=== PATIENT | female | born 1970 | race Hispanic/Latino ===

== ENCOUNTER 2018-11-09 23:00 | Observation (INO) | payer OTHER ==
[2018-11-09] MEDS ORDERED: Albuterol-Ipratrop 3 mg / 0.5 (3 ml) UD IH STA ×3 (23:50→23:51)
--- NOTE | 2018-11-09 23:54 | ED PDOC ---
HPI: SOB/CHF/COPD Time Seen by Provider: 11/09/18 23:19 Chief Complaint (Nursing): Shortness Of Breath Chief Complaint (Provider): sob History Per: Patient History/Exam Limitations: no limitations Onset/Duration Of Symptoms: Days (1 month) Current Symptoms Are (Timing): Still Present Additional Complaint(s): 48 y/o female presents for evaluation of dry cough, shortness of breath x 1 month. Patient was seen by Urgent Care and PMD multiple times and prescribed albuterol inhaler and nebulizer without improvement. Patient sent to ED by PMD for further evaluation. Denies fever, nausea/vomiting, chest pain, palpitations, leg pain/swelling, recent travel, OCP use, tobacco use. Last albuterol neb treatment prior to arrival Past Medical History Reviewed: Historical Data, Nursing Documentation, Vital Signs Vital Signs: Last Vital Signs Temp 97.5 F L 11/09/18 23:10 Pulse 109 H 11/09/18 23:10 Resp 26 H 11/09/18 23:10 BP 144/84 11/09/18 23:10 Pulse Ox 95 11/09/18 23:10 - Medical History PMH: No Chronic Diseases - Surgical History Surgical History: - Family History Family History: States: No Known Family Hx - Living Arrangements Living Arrangements: With Family - Social History Current smoker - smoking cessation education provided: No Alcohol: None Drugs: Denies - Home Medications Home Medications: Ambulatory Orders Medication Instructions Recorded Albuterol 0.083% [Albuterol 3 ml IH Q4 PRN 11/10/18 Sulfate 3 Ml] Carvedilol [Coreg] 3.125 mg PO DAILY 11/10/18 LORazepam [Ativan] 0.5 tab PO DAILY PRN 11/10/18 Oxybutynin [Oxybutynin Chloride] 5 mg PO DAILY 11/10/18 Oxycodone HCl/Acetaminophen 1 tab PO Q4 PRN 11/10/18 [Acetaminophen-Oxycodone 325 mg-5 mg] Patient Own Control 1 unit PO Q30D 11/10/18 Patient Own Control 2 puff PO BID 11/10/18 Patient Own Control 600 tab PO BID 11/10/18 Promethazine HCl/Codeine 5 ml PO Q4 PRN 11/10/18 [Prometh-Codein 6.25-10 mg/5 ml] - Allergies Allergies/Adverse Reactions: Allergies Allergy/AdvReac Type Severity Reaction Status Date / Time No Known Allergies Allergy Verified 11/09/18 23:10 Review of Systems ROS Statement: Except As Marked, All Systems Reviewed And Found Negative Respiratory: Positive for: Cough, Shortness of Breath Physical Exam - Reviewed Nursing Documentation Reviewed: Yes Vital Signs Reviewed: Yes - Physical Exam Appears: Positive for: Well, Non-toxic, Uncomfortable Head Exam: Positive for: ATRAUMATIC, NORMAL INSPECTION, NORMOCEPHALIC Skin: Positive for: Normal Color Eye Exam: Positive for: Normal appearance ENT: Positive for: Normal ENT Inspection Cardiovascular/Chest: Positive for: Regular Rate, Rhythm Respiratory: Positive for: Wheezing (diffuse expiratory wheezing) Gastrointestinal/Abdominal: Positive for: Normal Exam Back: Positive for: Normal Inspection Extremity: Positive for: Normal ROM Neurologic/Psych: Positive for: Alert, Oriented (x3) - Laboratory Results Result Diagrams: 11/10/18 00:10 11/10/18 00:23 - ECG ECG: Positive for: Viewed By Me (reviewed by ED attending) ECG Rhythm: Positive for: Sinus Tachycardia O2 Sat by Pulse Oximetry: 95 - Radiology X-Ray: Viewed By Me X-Ray Interpretation: No Acute Disease - Progress ED Course And Treament: -cbc -cmp -troponin -bnp -cxr -ekg -duoneb x 3 -IV solumedrol Case discussed with Dr. Rowland for placement in observation telemetry for failed outpatient treatment Disposition - Clinical Impression Clinical Impression: Bronchitis, Dyspnea - Patient ED Disposition Is Patient to be Admitted: Yes - Disposition Disposition Time: 00:03 Condition: FAIR
[2018-11-10] MEDS ORDERED: Albuterol-Ipratrop 3 mg / 0.5 (3 ml) UD ONE (00:14)
[2018-11-10 04:46] LABS: BASO # 0.1 K/uL (0.0-0.2); BASO % 1.1 % (0.0-2.0); EOS # 1.2 K/uL (0.0-0.7); EOS % 9.8 % (0.0-4.0); HEMOGLOBIN 12.8 g/dL (12.0-16.0); LYMPH # 4.4 K/uL (1.0-4.3); LYMPH % 36.5 % (20.0-40.0); MEAN CORPUSCULAR HEMOGLOBIN 21.6 pg (27.0-31.0); MEAN CORPUSCULAR HGB CONC 31.8 g/dL (33.0-37.0); MEAN PLATELET VOLUME 9.6 fl (7.2-11.7); MONO # 0.6 K/uL (0.0-0.8); NEUT # 5.7 K/uL (1.8-7.0); NEUT % 47.6 % (50.0-75.0); NRBC % 0.1 % (0.0-0.0); RBC 5.94 Mil/uL (3.80-5.20); RED CELL DISTRIBUTION WIDTH 15.3 % (11.5-14.5); WHITE BLOOD COUNT 12.1 K/uL (4.8-10.8)
[2018-11-10] MEDS ORDERED: Pneumococcal 23-Valent Vaccine IM ONE (06:00)
[2018-11-10] MEDS ORDERED: Promethazine/Cod 6.25mg-10mg/5ml Syr UD PO PRN (06:25)
[2018-11-10] MEDS ORDERED: Albuterol-Ipratrop 3 mg / 0.5 (3 ml) UD INH PRN (06:25)
[2018-11-10 07:47] LABS: ALB/GLOB RATIO 1.1 (1.0-2.1); AST/SGOT 25 U/L (14-36); B-TYPE NATRIURETIC PEPTIDE < 11.1 pg/ml (0-450); BLOOD UREA NITROGEN 12 mg/dl (7-17); GFR NON-AFRICAN AMERICAN > 60
[2018-11-10 07:48] LABS: ALT/SGPT 30 U/L (9-52)
--- NOTE | 2018-11-10 08:13 | CP.PCM.HP ---
<Dana Hoskins - Last Filed: 11/10/18 11:02> History of Present Illness - History of Present Illness History of Present Illness: CC: dyspnea HPI: 48 YO obese female with no sig PMHx presented to [facility] for cough and dyspnea. Pt states that her symptoms started about 2 months ago and significantly worsened. Dyspnea is worse with ambulation, cough is dry and nonproductive. Pt at one point took PO abx given by urgent care but her symptoms persisted. Denies fever, chest pain, palpitations. PMD: Dr. Riggs PMHx: denies Srughx: FHx: CAD and [place] Shx: denies smoking, ETOH and illicit dug use Allergies: NKDA Present on Admission - Present on Admission Any Indicators Present on Admission: No Review of Systems - Constitutional Constitutional: absent: Chills, Fever - Cardiovascular Cardiovascular: Dyspnea. absent: Chest Pain, Palpitations - Respiratory Respiratory: Cough, Dyspnea, Dyspnea on Exertion, Wheezing. absent: Hemoptysis - Gastrointestinal Gastrointestinal: absent: Abdominal Pain Past Patient History - Past Medical History & Family History Past Medical History?: Yes - Past Social History Smoking Status: Never Smoked Alcohol: None Drugs: Denies Home Situation {Lives}: With Family - PULMONARY Hx Respiratory Disorders: Yes Hx Asthma: Yes - NEUROLOGICAL Hx Neurological Disorder: No - HEENT Hx HEENT Problems: Yes Other/Comment: uses reading glasses - RENAL Hx Chronic Kidney Disease: No - ENDOCRINE/METABOLIC Hx Endocrine Disorders: No - HEMATOLOGICAL/ONCOLOGICAL Hx AIDS: No Hx Human Immunodeficiency Virus (HIV): No - INTEGUMENTARY Hx Dermatological Problems: No - MUSCULOSKELETAL/RHEUMATOLOGICAL Hx Falls: No - GASTROINTESTINAL Hx Gastrointestinal Disorders: No - GENITOURINARY/GYNECOLOGICAL Hx Genitourinary Disorders: No - PSYCHIATRIC Hx Psychophysiologic Disorder: No Hx Substance Use: No - SURGICAL HISTORY Hx Surgeries: Yes Hx Section: Yes (x1) - ANESTHESIA Hx Anesthesia: Yes Hx Anesthesia Reactions: No Hx Malignant Hyperthermia: No Meds Allergies/Adverse Reactions: Allergies Allergy/AdvReac Type Severity Reaction Status Date / Time No Known Allergies Allergy Verified 11/09/18 23:10 Physical Exam - Constitutional Appears: No Acute Distress, Other (short of breath when speaking ) - Head Exam Head Exam: NORMAL INSPECTION - Eye Exam Eye Exam: Normal appearance - ENT Exam ENT Exam: Mucous Membranes Moist - Respiratory Exam Respiratory Exam: Wheezes (b/l in the lower lobes, expiratory ), NORMAL BREATHING PATTERN. absent: Rales, Stridor - Cardiovascular Exam Cardiovascular Exam: REGULAR RHYTHM, +S1, +S2 - GI/Abdominal Exam GI & Abdominal Exam: Distended, Normal Bowel Sounds, Soft. absent: Tenderness - Extremities Exam Extremities exam: Positive for: normal inspection. Negative for: calf tenderness, pedal edema - Neurological Exam Neurological exam: Alert, Oriented x3 Results - Vital Signs Recent Vital Signs: Last Vital Signs Temp 97.3 F L 11/10/18 08:11 Pulse 103 H 11/10/18 08:11 Resp 20 11/10/18 08:11 BP 134/62 11/10/18 08:11 Pulse Ox 95 11/10/18 08:11 - Labs Result Diagrams: 11/10/18 00:10 11/10/18 00:23 Labs: Laboratory Results - last 24 hr 11/10/18 11/10/18 11/10/18 00:10 00:23 00:23 WBC 12.1 H RBC 5.94 H Hgb 12.8 Hct 40.4 MCV 68.0 L MCH 21.6 L MCHC 31.8 L RDW 15.3 H Plt Count 206 MPV 9.6 Neut % (Auto) 47.6 L Lymph % (Auto) 36.5 [place] % (Auto) 5.0 Eos % (Auto) 9.8 H Baso % (Auto) 1.1 Neut # (Auto) 5.7 Lymph # (Auto) 4.4 H [place] # (Auto) 0.6 Eos # (Auto) 1.2 H Baso # (Auto) 0.1 Sodium 137 Potassium 3.8 Chloride 105 Carbon Dioxide 24 Anion Gap 12 BUN 12 Creatinine 0.9 Est GFR ( Amer) > 60 Est GFR (Non-Af Amer) > 60 Random Glucose 104 Calcium 9.0 Total Bilirubin 0.4 AST 25 ALT 30 Alkaline Phosphatase 92 Troponin I < 0.0120 NT-Pro-B Natriuret Pep < 11.1 Total Protein 7.5 Albumin 4.0 Globulin 3.5 Albumin/Globulin Ratio 1.1 Influenza Typ A,B (EIA) Negative for flu a/b Assessment & Plan - Assessment and Plan (Free Text) Assessment: Assessment/plan: 48 YO obese female with no sig PMHx is admitted for respiratory distress and bronchitis. Bronchitis -likely 2/2 to URI, inflammatory -CXR neg, no active cardiopulmonary disease -IV steroids, Duonab Cami -no need for abx at this time given afebrile and neg CXR Respiratory distress -improving -likely 2/2 to bronchitis -plan as ordered DVT prolx: Lovenox SC <Ranjith Rowland - Last Filed: 11/10/18 15:17> Results - Vital Signs Recent Vital Signs: Last Vital Signs Temp 97.8 F 11/10/18 13:00 Pulse 108 H 11/10/18 13:00 Resp 20 11/10/18 13:00 BP 113/70 11/10/18 13:00 Pulse Ox 93 L 11/10/18 13:00 - Labs Result Diagrams: 11/10/18 00:10 11/10/18 00:23 Labs: Laboratory Results - last 24 hr 11/10/18 11/10/18 11/10/18 00:10 00:23 00:23 WBC 12.1 H RBC 5.94 H Hgb 12.8 Hct 40.4 MCV 68.0 L MCH 21.6 L MCHC 31.8 L RDW 15.3 H Plt Count 206 MPV 9.6 Neut % (Auto) 47.6 L Lymph % (Auto) 36.5 [place] % (Auto) 5.0 Eos % (Auto) 9.8 H Baso % (Auto) 1.1 Neut # (Auto) 5.7 Lymph # (Auto) 4.4 H [place] # (Auto) 0.6 Eos # (Auto) 1.2 H Baso # (Auto) 0.1 Sodium 137 Potassium 3.8 Chloride 105 Carbon Dioxide 24 Anion Gap 12 BUN 12 Creatinine 0.9 Est GFR ( Amer) > 60 Est GFR (Non-Af Amer) > 60 Random Glucose 104 Calcium 9.0 Total Bilirubin 0.4 AST 25 ALT 30 Alkaline Phosphatase 92 Troponin I < 0.0120 NT-Pro-B Natriuret Pep < 11.1 Total Protein 7.5 Albumin 4.0 Globulin 3.5 Albumin/Globulin Ratio 1.1 Influenza Typ A,B (EIA) Negative for flu a/b Attending/Attestation - Attestation I have personally seen and examined this patient.: Yes I have fully participated in the care of the patient.: Yes I have reviewed all pertinent clinical information: Yes
--- NOTE | 2018-11-10 11:03 | RAD ---
Date of service: 11/10/2018 HISTORY: cough, sob COMPARISON: No prior. TECHNIQUE: Chest PA and lateral FINDINGS: LUNGS: No active pulmonary disease. PLEURA: No significant pleural effusion identified. No pneumothorax apparent. CARDIOVASCULAR: No aortic atherosclerotic calcification present. Normal cardiac size. No pulmonary vascular congestion. OSSEOUS STRUCTURES: Spinal degenerative changes. VISUALIZED UPPER ABDOMEN: Normal. OTHER FINDINGS: None. IMPRESSION: No active disease.
[2018-11-10] MEDS: Albuterol-Ipratrop 3 mg / 0.5 (3 ml) UD INH SCH ×2 (11:48→13:57)
[2018-11-10] MEDS ORDERED: Albuterol-Ipratrop 3 mg / 0.5 (3 ml) UD INH SCH (14:00)
[2018-11-10] MEDS: MethylPREDNISolone 40 mg Vial IVP SCH (18:19)
[2018-11-10] MEDS ORDERED: Ergocalciferol 50,000 Intl Units Cap PO SCH (18:30)
[2018-11-10] MEDS: Levalbuterol 0.63 MG/3 ML Inhal Soln UD INH SCH (19:01)
[2018-11-11] MEDS: MethylPREDNISolone 40 mg Vial IVP SCH ×2 (01:02→10:01)
[2018-11-11] MEDS: Levalbuterol 0.63 MG/3 ML Inhal Soln UD INH SCH ×2 (01:06→08:14)
[2018-11-11 06:17] LABS: BASO % 0.1 % (0.0-2.0); HEMOGLOBIN 12.8 g/dL (12.0-16.0); LYMPH # 1.9 K/uL (1.0-4.3); LYMPH % 9.2 % (20.0-40.0); MEAN CELL VOLUME 68.4 fl (81.0-99.0); MEAN CORPUSCULAR HEMOGLOBIN 21.4 pg (27.0-31.0); MEAN CORPUSCULAR HGB CONC 31.3 g/dL (33.0-37.0); MEAN PLATELET VOLUME 9.7 fl (7.2-11.7); MONO # 0.4 K/uL (0.0-0.8); MONO % 2.1 % (0.0-10.0); NEUT # 18.2 K/uL (1.8-7.0); NEUT % 88.6 % (50.0-75.0); PLATELET COUNT 244 K/uL (130-400); RBC 5.96 Mil/uL (3.80-5.20); RED CELL DISTRIBUTION WIDTH 15.5 % (11.5-14.5); WHITE BLOOD COUNT 20.6 K/uL (4.8-10.8)
[2018-11-11 06:23] LABS: BLOOD UREA NITROGEN 20 mg/dl (7-17); CALCIUM 9.8 mg/dL (8.4-10.2); GFR NON-AFRICAN AMERICAN > 60
[2018-11-11 08:40] VITALS: BP 130/78; PULSE 105; RESP 20; TEMP 97.4; O2SAT 98
[2018-11-11] MEDS ORDERED: Citracal+D 315mg/250IU PO SCH (09:00)
[2018-11-11] MEDS ORDERED: Fluticasone-Salmeterol 250-50mcg Diskus IH SCH (09:00)
[2018-11-11] MEDS ORDERED: Enoxaparin 40 mg Syringe SC SCH (09:00)
[2018-11-11 14:48] LABS: BANDS 3 % (0-2); BASOPHIL 1 % (0-2); LYMPHOCYTE 14 % (20-50); MONOCYTE 2 % (0-10); NEUTROPHIL 80 % (42-75); PLATELET ESTIMATE NORMAL (NORMAL); TOTAL CELLS COUNTED 100
[2018-11-11 14:49] LABS: ANISOCYTOSIS SLIGHT; LARGE PLATELETS PRESENT; MICROCYTOSIS MODERATE
== END 2018-11-11 12:06 | disposition home or self-care (01) ==
LOC: H.ER 23:00 → H.ERHOLD 23:59 → H.TEL 11-10 03:40
PROVIDERS: ADMIT Family Medicine; ATTEND Family Medicine
DX: J40 Bronchitis, not specified as acute or chronic (principal); E66.9 Obesity, unspecified; Z23 Encounter for immunization; Z68.39 Body mass index [BMI] 39.0-39.9, adult
CPT/HCPCS: 36415; 71046; 80048; 80053; 81025; 83880; 84484; 85025; 87804; 90471; 90732; 94640; 99281; G0378; J2920; J2930